=== PATIENT | female | born 1925 | race Caucasian/White ===

== ENCOUNTER → 2016-10-16 | Outpatient (CLI) | payer OTHER ==
[2016-10-16 13:33] LABS: BASO % 0.5 %; BASO ABS # 0.04 K/uL (0-0.2); COMPLETE YES; EOS % 2.1 %; IG% 0.4 %; LYMPH ABS # 2.24 K/uL (1.2-3.4); MEAN CORPUSCULAR HEMOGLOBIN 30.2 pg (25-34); MEAN CORPUSCULAR HGB CONC 32.4 g/dl (32-36); MEAN PLATELET VOLUME 9.5 fL (7.4-10.4); MONO % 9.5 %; NEUT % 60.5 %; PLATELET COUNT 232 K/uL (130-400); RED BLOOD COUNT 4.41 M/uL (4.2-5.4); WHITE BLOOD COUNT 8.29 K/uL (4.8-10.8)
[2016-10-16 13:33] LABS: URINE APPEARANCE CLEAR (CLEAR); URINE BILIRUBIN NEG (NEG); URINE COLOR YELLOW; URINE EPITHELIAL CELL AUTO 20-30 /lpf (0-5); URINE NITRITE NEG (NEG); URINE PH 5.5 (4.5-7.5); URINE SPECIFIC GRAVITY 1.009 (1.000-1.030); UROBILINOGEN NEG (NEG)
[2016-10-16 13:57] LABS: MANUAL MICROSCOPIC REQUIRED? NO; REVIEW REQ? NO
[2016-10-16 15:04] LABS: ALT/SGPT 25 U/L (12-78); AMYLASE 57 U/L (25-115); AST/SGOT 23 U/L (15-37); BLOOD UREA NITROGEN 24 mg/dl (7-18); BUN/CREATININE RATIO 35.6 (10-20); CARBON DIOXIDE 25 mmol/L (21-32); CHLORIDE 104 mmol/L (98-107); CHOLESTEROL 181 mg/dl (0-200); CREATININE 0.68 mg/dl (0.60-1.20); GLUCOSE 87 mg/dl (70-99); POTASSIUM 3.6 mmol/L (3.5-5.1); SODIUM 138 mmol/L (136-145); TRIGLYCERIDES 62 mg/dl (0-150); VERY LOW DENSITY LIPOPROT CALC 12 mg/dl
[2016-10-16 15:09] LABS: CALCIUM 8.9 mg/dl (8.5-10.1)
[2016-10-16 15:15] LABS: ALB/GLOB RATIO 1.4 (0.9-2); ALKALINE PHOSPHATASE 100 U/L (45-117); CHOLESTEROL/HDL RATIO 2.8; HDL CHOLESTEROL 65 mg/dl; LDL CHOLESTEROL CALCULATED 104 mg/dl
--- NOTE | 2016-10-31 10:06 | CODING QUERY MEDICAL NECESSITY ---
CQSUPPORTING DIAGNOSIS NEEDED A supporting diagnosis is required for the test/procedure performed on this patient in order for us to be reimbursed by the patient's insurance. Please provide a supporting diagnosis for the following test/procedure listed below next to the test name along with your signature. *If there is no additional diagnosis for this patient that would support the following test/procedure please document that below next to the test/procedure. Test(s)/Procedure(s) that require a supporting diagnosis: DOS 10/16/16 VITAMIN B12 FOLIC ACID TEST Provider Signature: Date: Thank you Margie Burger Health Information Management Once completed, please kindly fax back to [phone] For questions please call [phone]
== END | disposition home or self-care (01) ==
LOC: C.LABMFLN 10:30
PROVIDERS: ATTEND Family Medicine
DX: G62.9 Polyneuropathy, unspecified (principal); R10.9 Unspecified abdominal pain; E78.5 Hyperlipidemia, unspecified; D64.9 Anemia, unspecified

== ENCOUNTER → 2016-11-01 | Outpatient (CLI) | payer OTHER ==
--- NOTE | 2016-11-01 15:49 | MAMMOGRAPHY REPORT ---
UNILATERAL RIGHT DIGITAL DIAGNOSTIC MAMMOGRAM TOMOSYNTHESIS WITH CAD: 11/01/2016 CLINICAL HISTORY: Six-month follow-up of right breast calcifications. A biopsy was recommended of t he calcifications at an outside institution, however, the patient opted for follow-up as opposed to biopsy. TECHNIQUE: Breast tomosynthesis in addition to standard 2D mammography was performed. Current study was also evaluated with a Computer Aided Detection (CAD) system. Spot magnification right CC and M L views and right CC and MLO 2-D and tomosynthesis images were obtained. COMPARISON: Comparison is made to exams dated: 03/02/2016 mammogram, 02/15/2016 mammogram, 09/22/2014 m ammogram, 02/15/2016 mammogram, 09/22/2014 mammogram, and 03/02/2016 [facility]. BREAST COMPOSITION: The tissue of the right breast is heterogeneously dense, which may obscure smal l masses. FINDINGS: Spot magnification views of the right breast demonstrate multiple groupings of similar ap pearing pleomorphic calcifications in the right superior breast, predominantly from 11 to 1:00. The calcifications are not significantly changed compared to the 03/02/2016 exam. However, the calcifica tions remain indeterminant for DCIS and stereotactic biopsy is still recommended. The remainder of the right breast is stable compared to prior exams, without suspicious masses, calcifications, or ar eas of architectural distortion noted. IMPRESSION: ACR BI-RADS CATEGORY 4: SUSPICIOUS Multiple groupings of pleomorphic calcifications throughout the right superior breast are stable com pared to the March 2016 exam although remain indeterminant and DCIS cannot be excluded. Therefo re, stereotactic biopsy is recommended for further evaluation. A phone call was made to the physician's office to confirm faxed results were received. The patient has been verbally notified of the results. She tentatively scheduled the biopsy before leaving the department. I will leave it up to her referring physician if she can safely discontinue baby aspir in for 5 days prior to the procedure. Approximately 10% of breast cancers are not detected with mammography. A negative mammographic repor t should not delay biopsy if a clinically suggestive mass is present. Kary Erwin M.D. ah/:11/01/2016 14:23:04 Toy Packer: aLura CHAMPAGNE)(Negin), [facility] letter sent: Abnormal 4/5 BI-RADS Code: ACR BI-RADS Category 4: Suspicious
== END | disposition home or self-care (01) ==
LOC: C.MAMM 13:44
PROVIDERS: ATTEND Family Medicine
DX: Z09 Encounter for follow-up examination after completed treatment for conditions other than malignant neoplasm (principal); R92.1 Mammographic calcification found on diagnostic imaging of breast

== ENCOUNTER → 2016-11-15 | Outpatient (CLI) | payer OTHER ==
--- NOTE | 2016-11-15 13:33 | Discharge Instructions ---
Discharge Instructions Procedure Procedure Date: November 15, 2016. Reason for visit: Right Calcs. Discharge Discharge Date: November 15, 2016. Discharge Diagnosis: post right breast stereotactic guided biopsy Medications Restart Stopped Medication(s): May restart Aspirin this evening Instructions Activity Recommendations: Additional Limitations (see below) Return to School/Work: no limitations Recommended Home Diet: No Limitations Provider Instructions: ACTIVITY RECOMMENDATIONS: * No lifting, pushing, pulling or exercising the affected side for three days. RETURN TO SCHOOL/WORK: * You may return to work/school after the procedure, but do not perform any strenuous activities for 24 to 48 hours. MEDICATIONS: * Tylenol (two 325 mg) every four to six hours if needed for mild pain (if not allergic to Tylenol). DIET: * Resume previous diet. SPECIAL CARE INSTRUCTIONS: * Keep biopsy site dry for 24 hours. May shower after 24 hours, but do not soak (bathe) incision. * May remove Tegaderm (plastic patch) tomorrow AFTER showering. * Leave the steri-strips on for one week. Allow the steri-strips to fall off by themselves. If not off after one week, you may remove them. You may place a Bandaid crosswise over the strips, if desired. * Apply ice 10 minutes on and 10 minutes off as needed. * Wear a bra at bedtime to sleep more comfortably for 2-3 days. * Your referring physician should have the results after approximately 5 to 7 business days. * Call for unusual bleeding, fever, drainage, etc or if you have any questions call [phone] during normal business hours or after hours call Dr Arenas, . FOLLOW UP VISIT: Follow-up with Referring Physician as scheduled. Hitesh Moore Recommendations: Call your doctor if: * Temperature above 101 degrees * Pain not relieved by pain medicine ordered * There is increased drainage or redness from any incision * You have any unanswered questions or concerns. Your Doctors Instructions noted above were prepared by provider Pinky Arenas. Patient Signature Section: Patient Instructions Signature Page Karyn Martinez Patient (or Guardian) Signature/Date: I have read and understand the instructions given to me by my caregivers. Caregiver/RN/Doctor Signature/Date: The above-named patient and/or guardian has received patient instructions on this date. + Original Patient Signature Page (only) stays with chart. Please make copy for patient.
--- NOTE | 2016-11-15 14:51 | MAMMOGRAPHY REPORT ---
STEREOTACTIC GUIDED BIOPSY RIGHT BREAST: 11/15/2016 CLINICAL HISTORY: Regional punctate and pleomorphic microcalcifications throughout the right upper o uter quadrant. Patient presents for stereotactic guided biopsy. COMPARISON: Comparison is made to exams dated: 11/01/2016 mammogram - [facility], mammogram, 03/02/2016 mammogram, 02/15/2016 mammogram, 02/15/2016 mammogram, and 09/22/2014 [facility]. PATIENT CONSENT: After explaining the risks, benefits and alternatives of the procedure to the patie nt, informed consent was obtained both verbally and in writing. Specific risks include: Bleeding, i nfection, puncture of adjacent structure, nontarget biopsy, sampling error, metal allergy and medica tion reaction. PROCEDURE DESCRIPTION: A time-out was performed and the right breast was confirmed as the site of bi opsy. The patient was placed prone on the stereotactic biopsy table and the breast was placed in CC from above compression. A magnetic grinder operator image was obtained that demonstrated the clustered microcalcificatio ns in question. They are amenable to sterotactic biopsy. Then +15 and -15 stereo pair images were obtained. The calcifications were targeted utilizing the coordinates obtained with a computer. The skin was prepped with Betadine. 1% Lidocaine with and without epinipherine was administered as loca l anesthesia. A small skin incision was made. Through the incision, the needle was inserted to the depth determined by the computer. 10 samples were obtained using a [employer]iva 9-gauge vacuum-assist ed biopsy device. The specimen radiograph demonstrated several internet sales representative microcalcifications, t herefore, a metallic marker was placed at the biopsy site. There was no immediate complication. Hemo stasis was achieved after several minutes of manual compression. The samples were sent to pathology in two containers labeled "with calcifications", and "no calcifications". All of the samples were obtained from the same single biopsy site. Postprocedure CC and ML views of the right breast demonstrate a new dumbbell shaped metallic biopsy marker and no significant hematoma in the 12:00 middle one third of the right breast, at the site of the biopsied clustered microcalcifications. IMPRESSION: STEREOTACTIC GUIDED BIOPSY Status post right breast stereotactic guided biopsy of clustered microcalcifications in the upper ou ter quadrant, with biopsy marker placed at the site. The patient will receive notification of the biopsy results from her referring physician. Pinky Arenas M.D. ay/:11/15/2016 13:59:58 Movement Therapist: Donna CHAMPAGNE)(Negin), [facility]
--- NOTE | 2016-11-15 14:54 | MAMMOGRAPHY REPORT ---
UNILATERAL RIGHT DIGITAL DIAGNOSTIC MAMMOGRAM: 11/15/2016 CLINICAL HISTORY: Status posterior stereotactic guided biopsy of clustered microcalcifications in th e right breast, approximate 12:00 axis. Patient has clusters of microcalcifications in a regional d istribution throughout the right upper outer quadrant. Please refer to the report from right breast stereotactic guided biopsy performed at the same time f or full detail. IMPRESSION: POST PROCEDURE IMAGING FOR MARKER PLACEMENT Please refer to the report from right breast stereotactic guided biopsy performed at the same time f or full detail. Approximately 10% of breast cancers are not detected with mammography. A negative mammographic repor t should not delay biopsy if a clinically suggestive mass is present. Pinky Arenas M.D. ay/:11/15/2016 13:57:34 Computer Science Instructor: Donna CHAMPAGNE)(M), [facility] BI-RADS Code: Post Procedure Imaging For Marker Placement
== END | disposition home or self-care (01) ==
LOC: C.MAMM 12:28
PROVIDERS: ATTEND Family Medicine
DX: R92.0 Mammographic microcalcification found on diagnostic imaging of breast (principal)